=== PATIENT | female | born 1940 | race Caucasian/White ===

== ENCOUNTER → 2023-10-12 14:33 | Outpatient (REF) | payer MEDICARE, OTHER, SELFPAY ==
[2023-10-12 16:50] LABS: Free T4 2.23 ng/dl (0.78-2.19)
[2023-10-12 16:58] LABS: Free T3 3.97 pg/ml (2.77-5.27)
[2023-10-12 17:04] LABS: TSH < 0.02 uIU/ml (0.47-4.68)
== END ==
LOC: REG 14:33
PROVIDERS: ATTENDING PHYSICIAN Internal Medicine Endocrinology, Diabetes & Metabolism; FAMILY PHYSICIAN Student in an Organized Health Care Education/Training Program
DX: E06.3 Autoimmune thyroiditis (principal)
CPT/HCPCS: 36415; 84439; 84443; 84481

== ENCOUNTER 2024-01-14 08:37 | Emergency (ER) | payer MEDICARE, OTHER, SELFPAY ==
[2024-01-14 08:47] VITALS: BP 137/67
--- NOTE | 2024-01-14 08:52 | ED.GENMED ---
History of Present Illness
General
Chief Complaint: Musculo-Skeletal Complaint
Time Seen by Provider: 01/14/24 08:52
History of Present Illness
History of Present Illness:
HPI: Patient fell off the sidewalk yesterday and complains of lateral left ankle pain. She denies any other injury. She has been seen by [facility] orthopedics in the past.
EXAM:
GENERAL: Well appearing in no distress
CERVICAL SPINE: No midline c-spine tenderness with excellent AROM
HEAD: No evidence of craniofacial trauma
CHEST: No chest wall tenderness, normal heart sounds
LUNGS: Equal lung sounds, no respiratory distress
ABDOMEN: No abdominal tenderness, no peritoneal signs
EXTREMITIES: There is decreased active range of motion at the left ankle due to pain. There is swelling noted over the left lateral malleolus. There is minimal bony tenderness to the lateral malleolus. There is no tenderness at the medial
malleolus. Achilles tendon is intact. No foot tenderness. Other extremities are unremarkable.
NEURO: Excellent strength all extremities, appropriate mental status, normal speech/language
TIME OF INITIAL ENCOUNTER: 9:15 AM
NUMBER AND COMPLEXITY OF PROBLEMS ADDRESSED AT THE ENCOUNTER
� Chronic conditions affecting care: Non-Hodgkin's lymphoma, hypothyroidism
� Acute Exacerbation and/or Progression of Chronic Illness: This is an acute problem
� Differential Diagnosis includes: Ankle sprain, ankle fracture, ankle fracture dislocation
AMOUNT AND/OR COMPLEXITY OF DATA TO BE REVIEWED AND ANALYZED
� I performed an independent evaluation of and my interpretation is:
EKG:
CT:
X-rays: I personally reviewed x-rays, soft tissue swelling noted over the lateral malleolus and there is also a linear hypodensity at the lateral malleolus
Laboratory Studies:
Other:
� Review of other/old records: The patient had a colonoscopy July 2022 and polyps were removed and diverticula were noted
� Clinical information was obtained by an independent historian: I spoke to the daughter at bedside
� Prescriptions/Medications Considered but not given: Patient declined analgesia
� Further testing considered but not performed:
RISK OF COMPLICATIONS AND/OR MORBIDITY OR MORTALITY OF PATIENT MANAGEMENT
� Social determinants of health affecting care: Lives at home
� Discussion with other providers: Discussed with Dr. Fuller and send images for his review�he agrees with boot and WBAT
� Escalation of care including admission/observation vs risk of discharge considered: Exam is more consistent with sprain however she does not have evidence of a nondisplaced fracture of the lateral malleolus�she says she will
follow-up with [facility] orthopedics.
Past History
Past History
ED Past Medical History: Hypothyroidism and Other (osteoporosis, lymphoma)
Social History
Tobacco: Non-smoker
Personal:
Living: with family
Phy Exam
Physical Exam
Physical Exam:
See HPI
Course
Orders/Labs/Results
Orders:
Orders
01/14/24 08:51
Ankle, left 3 view CR [CR Ankle - Left Min 3 Views ] Urgent
Comment:
Reason For Exam: pain, trauma
01/14/24 09:17
Air Splint Left-Treatment ONCE
01/14/24 09:21
Crutches-Treatment ONCE
01/14/24 10:20
boot [Ortho Boot Left- Treatment] ONCE
Short or tall?: Short
Vital Signs
Initial and Last Documented VS:
Initial Vital Signs
Temp Pulse Resp BP Pulse Ox
98.0 F 62 18 137/67 97
01/14/24 08:47 01/14/24 08:47 01/14/24 08:47 01/14/24 08:47 01/14/24 08:47
Last Documented Vital Signs
Temp Pulse Resp BP Pulse Ox
98.0 F 62 18 137/67 97
01/14/24 08:47 01/14/24 08:47 01/14/24 08:47 01/14/24 08:47 01/14/24 08:47
*Critical Care Note
Total Time (30-74mins, 75-104mins- exclusive of procedures): Not Applicable
ED Attending Note
-
Portions of this chart may have been created with voice recognition software.� Occasional wrong word or��sound alike� substitutions may have occurred due to the inherent limitations of voice recognition software.
Discharge Plan
Departure
Patient Disposition: Home (Routine Discharge)
Date of Disposition: 01/14/24
Time of Disposition: 10:19
Patient with high blood pressure during this ER visit?: Yes
Discharge Problem:
Fracture of lateral malleolus
Instructions: Ankle Fracture (DC), BLOOD PRESSURE
Prescriptions:
No Action
levothyroxine 100 MCG tablet
100 mcg PO DAILY
estradiol 1 MG tablet
0.5 mg PO DAILY
montelukast 10 MG tablet
10 mg PO DAILY
escitalopram oxalate [Lexapro] 20 mg Tablet
20 mg PO DAILY
acetaminophen [Tylenol] 325 mg Tablet
650 mg PO Q4H PRN (Reason: mild pain)
tramadol [Ultram] 50 mg tablet
50 - 100 mg PO Q6H PRN (Reason: pain) Qty: 14 0RF
Referrals:
Michael Fuller MD [Active] - Next open appointment
Albania Daigle MD [Family Provider] -
Activity Restrictions/Additional Instructions:
You have a nondisplaced fracture at the lateral malleolus. Follow-up with [facility] orthopedics.
Interventions
Interventions:
*Risk Screen - Suicide Last Done: 01/14/24 08:50
*General Assessment Last Done: 01/14/24 09:38
*Neglect/Abuse Screening Last Done: 01/14/24 08:50
*ED COVID-19 Vaccine History Last Done: 01/14/24 09:38
ED-Musculoskeletal Assessment Last Done: 01/14/24 09:41
Discharge Date and Time
Print Language: [id number]
== END 2024-01-14 10:54 | disposition home or self-care (01) ==
LOC: EMR 08:37
PROVIDERS: EMERGENCY PHYSICIAN Emergency Medicine; FAMILY PHYSICIAN Family Medicine
DX: S82.832A Other fracture of upper and lower end of left fibula, initial encounter for closed fracture (principal); W10.1XXA Fall (on)(from) sidewalk curb, initial encounter; R03.0 Elevated blood-pressure reading, without diagnosis of hypertension
CPT/HCPCS: 99283; 73610

== ENCOUNTER → 2024-02-01 14:16 | Outpatient (REF) | payer MEDICARE, OTHER, SELFPAY ==
[2024-02-01 15:43] LABS: Free T4 1.89 ng/dl (0.78-2.19)
[2024-02-01 15:50] LABS: TSH < 0.02 uIU/ml (0.47-4.68)
== END ==
LOC: REG 14:16
PROVIDERS: ATTENDING PHYSICIAN Internal Medicine Endocrinology, Diabetes & Metabolism; FAMILY PHYSICIAN Family Medicine
DX: E06.3 Autoimmune thyroiditis (principal)
CPT/HCPCS: 36415; 84439; 84443

== ENCOUNTER → 2024-02-05 14:34 | Outpatient (REF) | payer MEDICARE, OTHER, SELFPAY | LOC: RCS 14:34 | PROVIDERS: ATTENDING PHYSICIAN Otolaryngology; FAMILY PHYSICIAN Family Medicine | DX: Z01.818 Encounter for other preprocedural examination (principal) | CPT/HCPCS: 93005 ==

== ENCOUNTER → 2025-01-27 13:51 | Outpatient (REF) | payer MEDICARE, OTHER, SELFPAY ==
[2025-01-27 16:08] LABS: Hematocrit 40.3 % (37.0-47.0); Hemoglobin 13.6 g/dL (12.0-16.0); Mean Corp Hgb Conc. 33.7 g/dL (33.0-37.0); Mean Corpuscular Volume 96.9 fL (81.0-99.0); Nucleated Red Blood Cells % 0 %; Platelet Count 266 10^3/uL (130-400); Red Cell Dist. Width 12.2 % (11.5-14.5)
[2025-01-27 16:24] LABS: Iron 115 ug/dl (37-170); Very Low Density Lipoprotein 12 mg/dl (0-30)
[2025-01-27 16:35] LABS: HDL Cholesterol 119 mg/dl; LDL Cholesterol, Calculated 83 mg/dl
[2025-01-27 16:36] LABS: Total Iron Binding Capacity 282 ug/dl (265-497)
[2025-01-27 16:49] LABS: Vitamin D, 25-OH*** 34.0 ng/mL (30-80)
[2025-01-27 17:00] LABS: Ferritin 106.0 ng/ml (11.1-264.0)
[2025-01-27 17:39] LABS: Folate 7.7 ng/ml (2.76-20); Vitamin B12 685 pg/ml (239-931)
== END ==
LOC: WDC 13:51
PROVIDERS: ATTENDING PHYSICIAN Family Medicine
DX: Z87.39 Personal history of other diseases of the musculoskeletal system and connective tissue (principal); C82.00 Follicular lymphoma grade I, unspecified site; R53.83 Other fatigue; E78.5 Hyperlipidemia, unspecified; K35.80 Unspecified acute appendicitis; M81.0 Age-related osteoporosis without current pathological fracture; Z12.31 Encounter for screening mammogram for malignant neoplasm of breast
CPT/HCPCS: 36415; 77080; 80061; 82306; 82607; 82728; 82746; 83540; 83550; 85025